=== PATIENT | male | born 1980 | race Caucasian/White ===

== ENCOUNTER 2023-03-18 11:35 | Emergency (ER) | payer MEDICAID ==
[~2023-03-18] VITALS: Ht 175.3 cm; Wt 99.0 kg
[2023-03-18 11:50] VITALS: BP 143/88; PULSE 89; RESP 20; TEMP 98.3; O2SAT 98
== END 2023-03-18 18:37 | disposition left against medical advice (07) ==
LOC: ER 11:35
DX: M54.50 Low back pain, unspecified (principal); Z53.21 Procedure and treatment not carried out due to patient leaving prior to being seen by health care provider
CPT/HCPCS: 99281